=== PATIENT | female | born 1950 | race African-American/Black ===

== ENCOUNTER 2017-05-19 10:16 | Emergency (ER) | payer BC, MEDICAID ==
[~2017-05-19] VITALS: Ht 154.9 cm; Wt 89.0 kg
[2017-05-19 16:34] LABS: GLUCOSE URINE NEGATIVE (NEGATIVE); KETONES URINE NEGATIVE (NEGATIVE); LEUKOCYTE ESTERASE URINE 3+ (NEGATIVE); NITRITE URINE NEGATIVE (NEGATIVE); OCCULT BLOOD URINE 2+ (NEGATIVE); PH URINE 5.5 (4.5-8.0); PROTEIN URINE NEGATIVE (NEGATIVE); SPECIFIC GRAVITY URINE 1.014 (1.005-1.030)
[2017-05-19 16:58] LABS: CLARITY URINE HAZY (CLEAR); COLOR URINE YELLOW (YELLOW)
[2017-05-19 18:19] VITALS: BP 125/67
== END 2017-05-19 18:21 | disposition home or self-care (01) ==
LOC: ER 10:16
DX: N39.0 Urinary tract infection, site not specified (principal); M54.2 Cervicalgia; E78.00 Pure hypercholesterolemia, unspecified; E11.9 Type 2 diabetes mellitus without complications; F12.10 Cannabis abuse, uncomplicated; Z88.8 Allergy status to other drugs, medicaments and biological substances
CPT/HCPCS: 81001; 99283

== ENCOUNTER 2018-11-08 09:55 | Inpatient (IN) | payer BC, MEDICAID, MEDICARE, OTHER ==
[~2018-11-08] VITALS: Ht 154.9 cm; Wt 89.8 kg
[2018-11-08] MEDS ORDERED: OMEP20TA2 PO (10:02)
[2018-11-08] MEDS ORDERED: ROSU10TA25 PO (10:02)
[2018-11-08] MEDS ORDERED: ALPR0.5T PO (10:02)
[2018-11-08] MEDS ORDERED: ASPI-1158 PO (10:02)
[2018-11-08] MEDS ORDERED: LORAZEPAM 1MG TABLET PO ONE (10:30)
[2018-11-08 10:54] LABS: EOSINOPHILS % 3.2 % (0.0-5.0); HEMATOCRIT. 40.4 % (36.0-48.0); HEMOGLOBIN. 13.9 g/dL (12.0-16.0); LYMPHOCYTES % 32.6 % (20.0-50.0); MEAN CORPUSCULAR HEMOGLOBIN 29.8 pg (28.0-32.0); MEAN CORPUSCULAR VOLUME 86.6 fL (81.0-99.0); MEAN PLATELET VOLUME 9.8 fl (7.4-10.4); MONOCYTES % 5.5 % (2.0-8.0); NEUTROPHILS % 57.7 % (40.0-76.0); PLATELET 156 x1000/uL (130-400); RED BLOOD CELL COUNT 4.67 mill/uL (4.2-5.4); RED CELL DISTRIBUTION WIDTH 13.5 % (11.6-14.6)
[2018-11-08 11:13] LABS: CHLORIDE 112 mEq/L (98-107)
[2018-11-08 15:08] LABS: CLARITY URINE CLEAR (CLEAR); COLOR URINE YELLOW (YELLOW); KETONES URINE NEGATIVE (NEGATIVE); LEUKOCYTE ESTERASE URINE TRACE (NEGATIVE); NITRITE URINE NEGATIVE (NEGATIVE); OCCULT BLOOD URINE NEGATIVE (NEGATIVE); PH URINE 7.5 (4.5-8.0); PROTEIN URINE NEGATIVE (NEGATIVE); SPECIFIC GRAVITY URINE 1.001 (1.005-1.030); UROBILINOGEN URINE 0.2 E.U./dL (0.2-1.0)
[2018-11-08] MEDS ORDERED: LORAZEPAM 2MG/ML CPJ IV PRN (16:30)
[2018-11-08] MEDS ORDERED: CLONIDINE 0.1MG TABLET PO PRN (16:30)
[2018-11-08] MEDS ORDERED: MAGNESIUM/ALUMINUM HYDROXIDE/SIMETHICONE 30ML UDC PO PRN (16:30)
[2018-11-08] MEDS ORDERED: ACETAMINOPHEN 325MG TABLET PO PRN (16:30)
[2018-11-08] MEDS ORDERED: ONDANSETRON HCL 4MG/2ML INJ IV PRN (16:30)
[2018-11-08] MEDS ORDERED: ALPRAZOLAM 0.5 MG TABLET PO SCH ×2 (18:30→22:00)
[2018-11-08] MEDS ORDERED: IOHEXOL-350 100 ML BOTTLE ONE (18:38)
[2018-11-08 21:20] VITALS: BP 131/62
[2018-11-08] MEDS: ALPRAZOLAM 0.5 MG TABLET PO SCH (22:26)
[2018-11-09] VITALS: BP 104/49
[2018-11-09 04:00] VITALS: BP 93/57
[2018-11-09] MEDS: ALPRAZOLAM 0.5 MG TABLET PO SCH ×2 (06:00→13:40)
[2018-11-09 06:29] LABS: BASOPHILS % 0.9 % (0.0-2.0); EOSINOPHILS % 4.3 % (0.0-5.0); HEMATOCRIT. 36.3 % (36.0-48.0); HEMOGLOBIN. 12.5 g/dL (12.0-16.0); LYMPHOCYTES % 29.5 % (20.0-50.0); MEAN CORPUSCULAR HEMOGLOBIN 30.1 pg (28.0-32.0); MEAN CORPUSCULAR VOLUME 87.2 fL (81.0-99.0); MEAN PLATELET VOLUME 9.8 fl (7.4-10.4); MONOCYTES % 10.7 % (2.0-8.0); NEUTROPHILS % 54.6 % (40.0-76.0); PLATELET 133 x1000/uL (130-400); RED BLOOD CELL COUNT 4.16 mill/uL (4.2-5.4); RED CELL DISTRIBUTION WIDTH 13.8 % (11.6-14.6)
[2018-11-09 07:43] LABS: CHLORIDE 112 mEq/L (98-107)
[2018-11-09 08:00] VITALS: BP 105/53
[2018-11-09 09:46] VITALS: BP 105/55
[2018-11-09 12:00] VITALS: BP 100/48
== END 2018-11-09 14:14 | disposition home or self-care (01) | DRG 880 ==
LOC: ER 09:55 → 7WST 14:15 → EDBEDREQ 14:19 → ENRESERV 15:16 → CANRESERV 15:16 → SUPCPDRO 16:29 → ENRESERV 20:10
PROVIDERS: ADMIT Hospitalist; ATTEND Hospitalist
DX: F41.0 Panic disorder [episodic paroxysmal anxiety] (principal); E11.9 Type 2 diabetes mellitus without complications; E78.00 Pure hypercholesterolemia, unspecified; F13.90 Sedative, hypnotic, or anxiolytic use, unspecified, uncomplicated; F32.9 Major depressive disorder, single episode, unspecified; F45.8 Other somatoform disorders; R09.02 Hypoxemia; I10 Essential (primary) hypertension; I25.10 Atherosclerotic heart disease of native coronary artery without angina pectoris; K21.9 Gastro-esophageal reflux disease without esophagitis; K80.20 Calculus of gallbladder without cholecystitis without obstruction; Z83.3 Family history of diabetes mellitus; Z88.8 Allergy status to other drugs, medicaments and biological substances; Z79.82 Long term (current) use of aspirin
CPT/HCPCS: 36415; 71045; 71275; 82962; 83880; 84443; 84484; 93005; 93970; 99285; Q9967

== ENCOUNTER 2020-12-24 17:28 | Inpatient (IN) | payer MEDICARE ==
[~2020-12-24] VITALS: Ht 312.4 cm; Wt 62.8 kg
[~2020-12-24 17:28] MED LIST: ALPR0.5T PO; ASPI-1406 PO; OMEP20TA2 PO; ROSU10TA25 PO
[2020-12-24] MEDS ORDERED: ONDANSETRON HCL 4MG/2ML INJ IV STA (18:10)
[2020-12-24] MEDS ORDERED: MECLIZINE 25MG TABLET PO ONE (18:15)
[2020-12-24 18:42] LABS: BASOPHILS % 0.8 % (0.0-2.0); EOSINOPHILS % 1.5 % (0.0-5.0); HEMATOCRIT. 41.2 % (36.0-48.0); HEMOGLOBIN. 13.9 g/dL (12.0-16.0); LYMPHOCYTES % 13.4 % (20.0-50.0); MEAN CORPUSCULAR HEMOGLOBIN 29.5 pg (28.0-32.0); MEAN CORPUSCULAR VOLUME 87.1 fL (81.0-99.0); MEAN PLATELET VOLUME 9.3 fl (7.4-10.4); MONOCYTES % 7.6 % (2.0-8.0); NEUTROPHILS % 76.7 % (40.0-76.0); PLATELET 190 x1000/uL (130-400); RED BLOOD CELL COUNT 4.73 mill/uL (4.2-5.4)
[2020-12-24 18:46] LABS: CHLORIDE 110 mEq/L (98-107)
[2020-12-24 18:50] LABS: ETHANOL BLOOD < 10 mg/dL
[2020-12-25] MEDS ORDERED: ACETAMINOPHEN 325MG TABLET PO PRN (09:45)
[2020-12-25] MEDS ORDERED: NA PHOS,M-B/NA PHOS,DI-BA ENEMA 118ML PR PRN (09:45)
[2020-12-25] MEDS ORDERED: DOCUSATE SODIUM 100MG CAPSULE PO PRN (09:45)
[2020-12-25] MEDS ORDERED: ACETAMINOPHEN 650MG SUPP PR PRN (09:45)
[2020-12-25] MEDS ORDERED: MORPHINE SULFATE 2 MG/ML CPJ (NOT FOR IM USE) IV PRN (09:45)
[2020-12-25] MEDS ORDERED: ONDANSETRON HCL 4MG/2ML INJ IV PRN (09:45)
[2020-12-25] MEDS ORDERED: MAGNESIUM/ALUMINUM HYDROXIDE/SIMETHICONE 30ML UDC PO PRN (09:45)
[2020-12-25] MEDS ORDERED: LORAZEPAM 0.5MG TABLET PO PRN (09:45)
[2020-12-25] MEDS ORDERED: DIPHENHYDRAMINE 50MG/ML VIAL IV PRN (09:45)
[2020-12-25] MEDS ORDERED: IPRATROPIUM/ALBUTEROL 0.5-3(2.5)MG/3ML NEB NEB PRN (09:45)
[2020-12-25] MEDS ORDERED: CLONIDINE 0.1MG TABLET PO PRN (09:45)
[2020-12-25] MEDS ORDERED: GUAIFENESIN 200MG/10ML SUGAR FREE UDC PO PRN (09:45)
[2020-12-25] MEDS ORDERED: HYDROCODONE/ACETAMINOPHEN 5/325MG TABLET PO PRN (09:45)
[2020-12-25 10:00] VITALS: BP 115/62
[2020-12-25 11:00] VITALS: BP 115/62
[2020-12-25] MEDS ORDERED: QUET400T53 MT (11:28)
[2020-12-25] MEDS ORDERED: LOSA50TA41 MT (11:28)
[2020-12-25] MEDS ORDERED: ESCI-7 MT (11:28)
[2020-12-25] MEDS ORDERED: CANA100T MT (11:28)
[2020-12-25] MEDS: FAMOTIDINE 20MG/2ML VIAL IV SCH (11:38)
[2020-12-25] MEDS: MECLIZINE 25MG TABLET PO SCH ×3 (11:38→21:38)
[2020-12-25] MEDS: ENOXAPARIN 40MG/0.4ML SYR SUBCUT SCH (11:38)
[2020-12-25 12:00] VITALS: BP_SYST 132; BP_SYST 139; BP_SYST 149; BP_DIAS 56; BP_DIAS 60; BP_DIAS 64
[2020-12-25] MEDS ORDERED: ROSUVASTATIN CALCIUM 10 MG PO SCH (12:00)
[2020-12-25] MEDS ORDERED: ALPRAZOLAM 0.5 MG TABLET PO PRN (12:00)
[2020-12-25] MEDS ORDERED: DEXTROSE 50% WATER 50ML SYRINGE IV PRN (12:00)
[2020-12-25] MEDS ORDERED: MEDICATION NOT ON FORMULARY EA (Escitalopram Oxalate 1 TAB) MT SCH (12:00)
[2020-12-25 12:02] LABS: BASOPHILS % 0.8 % (0.0-2.0); EOSINOPHILS % 2.4 % (0.0-5.0); HEMATOCRIT. 41.7 % (36.0-48.0); HEMOGLOBIN. 13.6 g/dL (12.0-16.0); LYMPHOCYTES % 15.6 % (20.0-50.0); MEAN CORPUSCULAR HEMOGLOBIN 28.8 pg (28.0-32.0); MEAN CORPUSCULAR VOLUME 88.3 fL (81.0-99.0); MEAN PLATELET VOLUME 9.1 fl (7.4-10.4); NEUTROPHILS % 72.2 % (40.0-76.0); PLATELET 184 x1000/uL (130-400); RED BLOOD CELL COUNT 4.72 mill/uL (4.2-5.4); RED CELL DISTRIBUTION WIDTH 14.6 % (11.6-14.6)
[2020-12-25 12:08] LABS: CHLORIDE 110 mEq/L (98-107)
[2020-12-25] MEDS: BLOOD SUGAR DIAGNOSTIC STRIP TEST SCH ×3 (12:10→21:38)
[2020-12-25 12:12] LABS: INR 1.1; PROTHROMBIN TIME 11.7 sec (9.6-11.0)
[2020-12-25] MEDS: INSULIN LISPRO 100 UNITS/ML SUBCUT SCH ×3 (12:40→21:00)
[2020-12-25 13:14] LABS: *AMPHETAMINES SCREEN URINE NEGATIVE (NEGATIVE); *BARBITURATES SCREEN URINE NEGATIVE (NEGATIVE); *BENZODIAZEPINES SCREEN URINE NEGATIVE (NEGATIVE); *COCAINE SCREEN URINE NEGATIVE (NEGATIVE); METHADONE URINE SCREEN NEGATIVE (NEGATIVE); OPIATES URINE SCREEN NEGATIVE (NEGATIVE); PHENCYCLIDINE URINE SCREEN NEGATIVE (NEGATIVE)
[2020-12-25 13:15] LABS: CANNABINOID URINE SCREEN NEGATIVE (NEGATIVE)
[2020-12-25] MEDS: ASPIRIN 81MG EC TABLET PO SCH (13:15)
[2020-12-25] MEDS: CITALOPRAM HYDROBROMIDE 10MG TABLET PO SCH (13:15)
[2020-12-25] MEDS: ATORVASTATIN CALCIUM 20MG TABLET PO SCH (13:16)
[2020-12-25] MEDS: SODIUM CHLORIDE 0.45% 1,000 ML IV SCH (13:17)
[2020-12-25] MEDS ORDERED: QUET50TA MT (14:56)
[2020-12-25 16:00] VITALS: BP_SYST 103; BP_SYST 112; BP_SYST 96; BP_DIAS 52; BP_DIAS 56
[2020-12-25 16:37] LABS: CREATINE KINASE 213 IU/L (26-192)
[2020-12-25 16:40] LABS: CREATINE KINASE MB FRACTION 2.5 ng/mL (0.5-3.6)
[2020-12-25] MEDS: QUETIAPINE FUMARATE 50MG TABLET PO SCH ×2 (17:24→21:38)
[2020-12-25] MEDS: AZITHROMYCIN 500 MG TABLET PO SCH (17:24)
[2020-12-25] MEDS: LORATADINE 10MG TABLET PO SCH (17:25)
[2020-12-25 20:00] VITALS: BP_SYST 104; BP_SYST 111; BP_SYST 92; BP_DIAS 49; BP_DIAS 54; BP_DIAS 60
[2020-12-25] MEDS ORDERED: QUETIAPINE FUMARATE MT SCH (21:00)
[2020-12-26] VITALS: BP_SYST 102; BP_SYST 121; BP_DIAS 54; BP_DIAS 56; BP_DIAS 61
[2020-12-26 00:12] LABS: CREATINE KINASE 185 IU/L (26-192)
[2020-12-26 00:13] LABS: CREATINE KINASE MB FRACTION 2.2 ng/mL (0.5-3.6)
[2020-12-26] MEDS: SODIUM CHLORIDE 0.45% 1,000 ML IV SCH ×2 (01:06→14:08)
[2020-12-26 04:00] VITALS: BP_SYST 108; BP_SYST 126; BP_SYST 98; BP_DIAS 42; BP_DIAS 55; BP_DIAS 60
[2020-12-26] MEDS: BLOOD SUGAR DIAGNOSTIC STRIP TEST SCH ×2 (06:28→12:06)
[2020-12-26] MEDS: MECLIZINE 25MG TABLET PO SCH ×2 (06:28→14:08)
[2020-12-26] MEDS: INSULIN LISPRO 100 UNITS/ML SUBCUT SCH ×2 (06:28→12:06)
[2020-12-26 07:13] LABS: BASOPHILS % 0.9 % (0.0-2.0); EOSINOPHILS % 4.8 % (0.0-5.0); HEMATOCRIT. 37.3 % (36.0-48.0); HEMOGLOBIN. 12.5 g/dL (12.0-16.0); LYMPHOCYTES % 21.9 % (20.0-50.0); MEAN CORPUSCULAR HEMOGLOBIN 29.6 pg (28.0-32.0); MEAN CORPUSCULAR VOLUME 88.3 fL (81.0-99.0); MEAN PLATELET VOLUME 9.5 fl (7.4-10.4); MONOCYTES % 11.5 % (2.0-8.0); NEUTROPHILS % 60.9 % (40.0-76.0); PLATELET 153 x1000/uL (130-400); RED BLOOD CELL COUNT 4.22 mill/uL (4.2-5.4)
[2020-12-26 07:56] LABS: CHLORIDE 108 mEq/L (98-107)
[2020-12-26 08:00] VITALS: BP_SYST 114; BP_SYST 116; BP_SYST 125; BP_DIAS 54; BP_DIAS 61; BP_DIAS 62
[2020-12-26 08:15] LABS: LDL CHOLESTEROL 50 mg/dL (5-100)
[2020-12-26 08:17] LABS: HDL CHOLESTEROL 34 mg/dL (40-59); T4 FREE 1.15 ng/dL (0.76-1.46)
[2020-12-26] MEDS: LORATADINE 10MG TABLET PO SCH (08:53)
[2020-12-26] MEDS: AZITHROMYCIN 500 MG TABLET PO SCH (08:53)
[2020-12-26] MEDS: ATORVASTATIN CALCIUM 20MG TABLET PO SCH (08:53)
[2020-12-26] MEDS: ASPIRIN 81MG EC TABLET PO SCH (08:53)
[2020-12-26] MEDS: QUETIAPINE FUMARATE 50MG TABLET PO SCH (08:53)
[2020-12-26] MEDS: FAMOTIDINE 20MG/2ML VIAL IV SCH (08:54)
[2020-12-26] MEDS: ENOXAPARIN 40MG/0.4ML SYR SUBCUT SCH (08:54)
[2020-12-26] MEDS: CITALOPRAM HYDROBROMIDE 10MG TABLET PO SCH (08:54)
[2020-12-26 12:00] VITALS: BP_SYST 122; BP_SYST 129; BP_SYST 130; BP_DIAS 62; BP_DIAS 66; BP_DIAS 68
[2020-12-26 16:00] VITALS: BP_SYST 118; BP_SYST 126; BP_SYST 132; BP_DIAS 61; BP_DIAS 64; BP_DIAS 65
[2020-12-26 16:26] LABS: CLARITY URINE CLEAR (CLEAR); COLOR URINE YELLOW (YELLOW); KETONES URINE NEGATIVE (NEGATIVE); LEUKOCYTE ESTERASE URINE TRACE (NEGATIVE); NITRITE URINE NEGATIVE (NEGATIVE); OCCULT BLOOD URINE NEGATIVE (NEGATIVE); PROTEIN URINE NEGATIVE (NEGATIVE); SPECIFIC GRAVITY URINE 1.008 (1.005-1.030); UROBILINOGEN URINE 0.2 E.U./dL (0.2-1.0)
[2020-12-26 17:12] VITALS: BP 122/68
[2020-12-27] MEDS ORDERED: FAMOTIDINE 20MG TABLET PO SCH (09:00)
== END 2020-12-26 18:10 | disposition home or self-care (01) | DRG 74 ==
LOC: ER 17:37 → MICUSO 20:19 → 8WST 12-25 09:47
PROVIDERS: ADMIT Internal Medicine; ATTEND Internal Medicine
DX: G90.9 Disorder of the autonomic nervous system, unspecified (principal); J84.9 Interstitial pulmonary disease, unspecified; E11.65 Type 2 diabetes mellitus with hyperglycemia; E86.0 Dehydration; F41.9 Anxiety disorder, unspecified; I25.10 Atherosclerotic heart disease of native coronary artery without angina pectoris; E78.5 Hyperlipidemia, unspecified; I11.9 Hypertensive heart disease without heart failure; E78.00 Pure hypercholesterolemia, unspecified; R26.81 Unsteadiness on feet; Z79.899 Other long term (current) drug therapy; Z91.011 Allergy to milk products; Z79.82 Long term (current) use of aspirin
CPT/HCPCS: 36415; 70551; 71045; 80053; 80061; 80305; 80320; 81003; 82550; 82553; 82962; 83036; 84439; 84443; 84484; 85025; 93005; 93306; 93880; 93970; 97112; 97161; 99285; J1650; J2405; J3490; J8597; G0480